=== PATIENT | female | born 1935 | race Caucasian/White ===

== ENCOUNTER → 2016-09-07 | Outpatient (CLI) | payer MEDICARE, BC ==
[~2016-09-07] MED LIST: ALPRAZOLAM PO; AMLODIPINE BESYL5 MG PO; BENADRYL25 MG PO; BYSTOLIC5 MG PO; CALAN SR PO; CALCIUM ZINC MAG PO; CELEXA PO; CITALOPRAM HBR40 MG PO; GLUCOSAMIN-CHO1 EACH PO; IBUPROFEN PO; IBUPROFEN800 MG PO; LEVOTHYROXINE75 MCG PO; OMNICEF300 MG PO; POTASSIUM PO; PRAVACHOL PO; PROBIOTIC1 EAC1 PO; SYNTHROID PO; TENORMIN50 MG PO; TYLENOL ARTHRITIS; VERAPAMIL ER180 MG PO; WOMEN'S 50+ DA1 EACH PO; XANAX0.5 M1 PO; [UNRECOGNIZED DRUG - REMARK]
--- NOTE | ~2016-09-07 | CR63 ---
[facility] A Service of [facility] & [facility] RADIOLOGY TEXT RESULTS PATIENT: EMILIANA CABRERA LOCATION: [facility] : 35 UNIT #: [id number] AGE: [address]: Jose Antonio Raymundo MD SEX: F ORDER DR: [id number] [facility] [address] [place], [place] [address] [id number] O MR#: [id number] Acc #: [id number] NAME: EMILIANA CABRERA : 1935 SEX: F STUDY DATE/TIME: 09/07/2016 9:51 UNIT: [facility] ROOM: STUDY DESCRIPTION: CR Chest 2 View Attending Physician: Jose Antonio Raymundo M.D. Referring Physician: Jose Antonio Raymundo M.D. Ordering Physician: Jose Antonio Raymundo M.D. Primary Care Physician: Cristi Ross Jr., M.D. MEDICAL IMAGING REPORT This report is preliminary unless electronic signature is present EXAM Chest PA and lateral 09/07/2016 HISTORY Osteoarthritis left knee preop left total knee replacement, shortness of breath today. Benign essential hypertension. FINDINGS The heart is normal in size. The lungs are clear. There are no pleural effusions. Moderate-sized hiatal hernia is again noted. IMPRESSION Hiatal hernia. No active pulmonary disease. Dictated by... Danny Mosquera M.D. THIS IS AN ELECTRONICALLY VERIFIED REPORT Danny Mosquera M.D. at 09/08/2016 8:11 AM CASIMIRO/shaan TD: 09/07/2016 12:50 JOB #: [id number] MEDICAL IMAGING REPORT Page 1 of 1 COPY
--- NOTE | ~2016-09-07 | EKG ---
PATIENT: EMILIANA CABRERA UNIT #: [id number] Ventricular Rate: 45 BPM Atrial Rate: 45 BPM P-R Interval: 126 ms QRS Duration: 72 ms Q-T Interval: 460 ms QTC Calculation(Bezet): 397 ms P [place]: 27 degrees Calculated R [place]: 15 degrees Calculated T [place]: 37 degrees Diagnosis Line: Marked sinus bradycardia Diagnosis Line: Otherwise normal ECG Diagnosis Line: When compared with ECG of 27-AUG-2014 10:57, Diagnosis Line: No significant change was found Diagnosis Line: Reconfirmed by DAYNA AGUSTIN MD ([id number]) on Diagnosis Line: 09/09/2016 2:14:56 PM INTERPRETING MD: VAMSI SLAUGHTER
--- NOTE | ~2016-09-07 | US84 ---
[id number] [facility] [address] [place], [place] [address] [id number] O MR#: [id number] Acc #: [id number] NAME: EMILIANA CABRERA : 1935 SEX: F STUDY DATE/TIME: 09/07/2016 12:50 UNIT: [facility] ROOM: STUDY DESCRIPTION: US LE Veins Complete Ken Stdy Attending Physician: Jose Antonio Raymundo M.D. Referring Physician: Jose Antonio Raymundo M.D. Ordering Physician: Jose Antonio Raymundo M.D. Primary Care Physician: Cristi Ross Jr., M.D. MEDICAL IMAGING REPORT This report is preliminary unless electronic signature is present EXAM Bilateral leg vein Doppler, 09/07/2016. HISTORY Preoperative exam. Prior history of pulmonary embolism. Cramps in the lower extremities for several years. TECHNIQUE Venous ultrasound examination of both lower extremities was performed using grayscale, spectral Doppler and color flow Doppler imaging. FINDINGS The examination is negative. There is no evidence of deep venous thrombus from the groin to the lower calf bilaterally. Visualized greater saphenous veins are also patent. IMPRESSION Negative examination. No evidence of lower extremity deep venous thrombosis. Dictated by... Sb Luong Jr., M.D. THIS IS AN ELECTRONICALLY VERIFIED REPORT Sb Luong Jr., M.D. at 09/08/2016 7:35 AM Charbel TD: 09/07/2016 13:45 JOB #: [id number] MEDICAL IMAGING REPORT Page 1 of 1 COPY
--- NOTE | ~2016-09-07 | CO ---
Unit #: [id number] #: [id number] Patient: EMILIANA CABRERA [id number] [address] [place], [place] [address] [id number] O MR#: [id number] NAME: EMILIANA CABRERA ROOM: Age: 81 Sex: F Admission Date: 09/07/2016 : 1935 Attending Physician: Jose Antonio Raymundo M.D. Primary Care Physician: Cristi Ross Jr., M.D. Consultation Date: 09/07/2016 CONSULTATION REPORT PREOP CONSULTATION NOTE REASON FOR CONSULTATION Preop evaluation. HISTORY OF PRESENT ILLNESS The patient is an 81-year-old female, who presents for evaluation prior to left total knee. She states that she is in her usual state of health today and suffers from left knee pain. She states that it is worse with exertion, better with ibuprofen that is prescribed. She does not appear to take any narcotic therapy. Regarding chronic illnesses, she has a well-controlled hypothyroidism, well-controlled hypertension, and well-controlled anxiety. PAST MEDICAL HISTORY Hypothyroidism. Allergic rhinitis. History of diverticulitis, knee bursitis, mitral valve disease, hypertension, chronic back pain. Hiatal hernia and coronary artery disease. PAST SURGICAL HISTORY Right total knee. FAMILY HISTORY Notable for longevity with a mother who is still living at 101. SOCIAL HISTORY The patient denies tobacco, alcohol and illicit drug use. ALLERGIES Doxycycline. REVIEW OF SYSTEMS 10-point review of systems obtained. Negative, except as per HPI with the addition of dyspnea on exertion. PHYSICAL EXAMINATION VITAL SIGNS: Blood pressure 151/74, heart rate 109, temperature 97.2. GENERAL: 81-year-old female who appears younger than stated age, in no acute distress. HEENT: Pupils equally round. Extraocular movements intact. Mucous membranes dry. NECK: Supple. No JVD. No lymphadenopathy. CARDIAC: Regular rate and rhythm. No murmurs, gallops, or rubs. Unit #: [id number] #: [id number] Patient: EMILIANA CABRERA LUNGS: Clear to auscultation bilaterally. ABDOMEN: Nontender, nondistended, positive bowel sounds. EXTREMITIES: No clubbing, cyanosis, or edema. They are warm and dry. PSYCHIATRIC: Alert and oriented x3. Affect is appropriate. NEUROLOGICAL: Cranial nerves II through XII intact grossly. The patient moves all extremities equally on purpose. SKIN: No rash, bruises, or ulcers. MUSCULOSKELETAL: Left knee, pain and swelling; otherwise, no muscle or joint pain. No muscle or joint swelling. DIAGNOSTIC STUDIES LABORATORIES: BMP is essentially normal. She does have a sodium to be slightly low at 133. CBC is normal. Coagulation studies are normal. UA shows 1+ leukocyte esterase and 5-10 white cells, 4+ bacteria, occasional squamous cells noted. Urine culture has been started. ASSESSMENT AND PLAN 1. Preop evaluation based on history and physical, I feel that this patient would be best suited by preop stress testing. She did undergo heart cath in August of 2014, and was noted to have a normal left main, normal left anterior descending normal co-dominate circumflex, but also radius intermedius branch that showed an ostial 75% to 80% stenosis, and codominant right coronary artery showing borderline significant distal stenosis. The patient states that she does have shortness of breath when she gets in a hurry, and has previously attributed this to her hiatal hernia impeding her lung function; however, given that she has opted to discontinue her beta-christopher, given side effects of fatigue and a heart rate of 109 today, I feel a preoperative stress test would allow for better risk stratification. I have discussed this with the patient who understands and agrees. 2. Left knee osteoarthritis. Potential left total knee after further cardiac workup. 3. Hypertension. Continue home amlodipine. 4. Anxiety. The patient should continue Celexa and Xanax. 5. Hypothyroidism. Patient is to continue her levothyroxine. 6. Prophylaxis: DVT prophylaxis in the perioperative period will be determined by the orthopedic service. 1. Dictated by... Rodri Vanegas M.D. BELEN/mohan TD: 09/07/2016 20:04 JOB #: [id number] CONSULTATION REPORT Page 1 of 1 X Rodri Vanegas MD X CONSULTATION REPORT
--- NOTE | ~2016-09-07 | EKG ---
PATIENT: EMILIANA CABRERA UNIT #: [id number] Ventricular Rate: 45 BPM Atrial Rate: 45 BPM P-R Interval: 126 ms QRS Duration: 72 ms Q-T Interval: 460 ms QTC Calculation(Bezet): 397 ms P [place]: 27 degrees Calculated R [place]: 15 degrees Calculated T [place]: 37 degrees Diagnosis Line: Marked sinus bradycardia Diagnosis Line: Abnormal ECG Diagnosis Line: When compared with ECG of 27-AUG-2014 10:57, Diagnosis Line: No significant change was found Diagnosis Line: Confirmed by DAYNA AGUSTIN MD ([id number]) on 09/09/2016 Diagnosis Line: 2:14:39 PM INTERPRETING MD: VAMSI SLAUGHTER
[2016-09-07 08:32] LABS: HEMATOCRIT 40.4 % (35.0-45.0); HEMOGLOBIN 13.1 gm/dL (12.0-16.0); MEAN CELL VOLUME 86.7 FL (83-96); MEAN CORPUSCULAR HGB CONC 32.3 g/dL (30-36); MEAN PLATELET VOLUME 7.7 FL (6.5-11.5); RED BLOOD COUNT 4.66 X10e (3.90-5.30); RED CELL DISTRIBUTION WIDTH 12.9 % (11.0-15.5); WHITE BLOOD COUNT 7.4 X10e3 (4.0-10.5)
[2016-09-07 08:45] LABS: PROTHROMBIN TIME (PATIENT) 10.3 SECONDS (9.6-11.5)
[2016-09-07 09:14] LABS: ALBUMIN SERUM 4.1 g/dL (3.5-5.0); BILIRUBIN,TOTAL 0.5 mg/dL (0.2-2.0); CALCIUM SERUM 9.1 mg/dL (8.4-10.2); GLOM FILT RATE Estimated 52.8 mL/min (>60); POTASSIUM 4.3 mmol/L (3.5-5.1); PROTEIN TOTAL SERUM 6.9 g/dL (6.0-8.3)
[2016-09-07 09:17] LABS: URINE APPEARANCE CLEAR; URINE BILIRUBIN NEG (NEG); URINE BLOOD NEG (NEG); URINE COLOR YELLOW; URINE GLUCOSE NEG (NEG); URINE KETONE NEG (NEG); URINE LEUKOCYTE ESTERASE 1+ (NEG); URINE NITRATE NEG (NEG); URINE PH 6.5 (5-8); URINE PROTEIN NEG (NEG); URINE SPECIFIC GRAVITY 1.013 (1.003-1.035); URINE UROBILINOGEN 0.2 MG/DL (NEG)
[2016-09-07 09:19] LABS: CULTURE INDICATED? YES; URBCS1 AUWI 0-2 /[HPF] (0-2); URINE BACTERIA AUWI 4+ (NEGATIVE); URINE SQUAMOUS EPITHELIAL CELL OCC /[HPF]
[2016-09-07 09:20] LABS: URINE SOURCE CLEAN CATCH
== END | disposition home or self-care (01) ==
LOC: CAMB 07:10
PROVIDERS: Orthopaedic Surgery
DX: Z01.818 Encounter for other preprocedural examination (principal); M17.12 Unilateral primary osteoarthritis, left knee; M79.89 Other specified soft tissue disorders; I10 Essential (primary) hypertension; K44.9 Diaphragmatic hernia without obstruction or gangrene
CPT/HCPCS: 36415; 71020; 80053; 81003; 85027; 85610; 86850; 86900; 86901; 87070; 87086; 87088; 87186; 93005; 93970

== ENCOUNTER → 2016-11-30 | Outpatient (CLI) | payer MEDICARE, BC ==
--- NOTE | ~2016-11-30 | CO ---
Unit #: [id number] #: [id number] Patient: EMILIANA CABRERA [id number] [address] [place], [place] [address] [id number] O MR#: [id number] NAME: EMILIANA CABRERA ROOM: Age: 81 Sex: F Admission Date: 11/30/2016 : 1935 Attending Physician: Jose Antonio Raymundo M.D. Primary Care Physician: Cristi Ross Jr., M.D. Consultation Date: 11/30/2016 CONSULTATION REPORT REASON FOR CONSULTATION Followup preop medical evaluation prior to left total knee arthroplasty. The patient's surgery was rescheduled from original surgery date due to patient's low back pain and need for epidural injections. HISTORY OF PRESENT ILLNESS The patient is an 81-year-old female, who presents to preprocedural screening for the reasons indicated above. She was evaluated on 09/07/[address] Vanegas of our group, who recommended preoperative cardiac clearance. The patient states that her surgery was canceled not because of the need for preop cardiac clearance, but because of problems with her low back and the need for epidural injections. She was however recently evaluated by Dr. Cristi Whitaker, underwent cardiac stress test and the patient's medical record includes a letter of preoperative cardiac clearance for elective surgery stating that she is at acceptable cardiac risk for the planned elective surgery and signed by Dr. Cristi Whitaker. The patient has also received preop dental clearance. She denies upper chest, back, arm, neck, jaw pain or pressure. Denies the ability to tolerate CPAP for a known diagnosis of sleep apnea. She denies history of myocardial infarction, congestive heart failure, CVA, TIA, and diabetes. Her renal function is within normal range today. Her surgery has been rescheduled for 12/12/[address] Ramyundo. PAST MEDICAL HISTORY There have been no changes since the original dictation by Dr. Vanegas on 09/07/2016. PAST SURGICAL HISTORY Only the addition of epidural injections without other changes since previous report. ALLERGIES Doxycycline and shell fish, both cause hives and swelling; adverse reaction to isosorbide, headaches; and codeine, nausea and vomiting/abdominal pain. CURRENT MEDICATIONS 1. Levothyroxine sodium 75 mcg p.o. daily. 2. Xanax 0.25 mg p.o. b.i.d. p.r.n. anxiety. 3. Ibuprofen 800 mg p.o. b.i.d. p.r.n. pain. 4. Amlodipine besylate 5 mg p.o. daily. 5. Celexa 40 mg p.o. daily. SOCIAL HISTORY Unit #: [id number] #: [id number] Patient: EMILIANA CABERRA Unchanged from 09/07/2016 preop evaluation. FAMILY HISTORY Unchanged from 09/07/2016 preop evaluation. REVIEW OF SYSTEMS A 10-point review of systems is conducted and otherwise negative except as indicated under history of present illness above. PHYSICAL EXAMINATION GENERAL: An 81-year-old female, awake and alert, in no acute distress. VITAL SIGNS: Temperature 97.4 orally, heart rate 66, respiratory rate 16, and blood pressure 114/64. HEENT: Atraumatic and normocephalic. Sclerae anicteric. No discharge from eyes, ears, or nares. LYMPHATICS: No preauricular, postauricular, tonsillar, submental, anterior-posterior cervical, supra or infraclavicular adenopathy. ENDOCRINE: No thyromegaly, thyroid nodules, or tenderness. RESPIRATORY: Clear to auscultation in all rashid bilaterally without wheezes, rhonchi, or rales. CARDIOVASCULAR: S1 and S2. Regular rate and rhythm without murmur or rub. No carotid bruits. GI: Bowel sounds are positive x4. Soft, nontender, and nondistended. EXTREMITIES: No edema, cyanosis, or clubbing. MUSCULOSKELETAL: Strength 5/5 in all extremities bilaterally to flexion and extension. No tenderness or obvious muscle atrophy. NEUROLOGIC: Alert and oriented x3. Speech clear. Cranial nerves 2 through 12 are grossly intact. Follows directions for examination. DIAGNOSTIC STUDIES LABORATORY RESULTS: WBC 7.3, hemoglobin 12.6, hematocrit 38.2, and platelets 355,000. Sodium 135, potassium 4.0, chloride 101, CO2 of 25, glucose 88, BUN 17, creatinine 0.6, and calcium 8.9. AST 23, ALT 17, alkaline phosphatase 100, bilirubin total 0.5, total protein 6.6, and albumin 3.8. Urinalysis negative with neither microscopic nor culture indicated. PT 10.8, INR 1.0. Blood type B positive. IMAGING STUDIES: Two-view chest x-ray report, date of study 09/07/2016, impression; hiatal hernia. No active pulmonary disease. Bilateral lower extremity duplex venous Dopplers on 09/07/2016, negative examination. No evidence of lower extremity DVT. CARDIOVASCULAR STUDIES: A 12-lead EKG, marked sinus bradycardia, otherwise normal ECG. When compared to ECG 08/27/2014, no significant change was found, confirmed by Noel Arana M.D. IMPRESSION The patient is an 81-year-old female, who presents to preprocedural screening for; 1. Preoperative medical evaluation prior to left total knee arthroplasty. The patient's Zelaya revised cardiac risk index is equal to 0.4%. Based on information known today, this represents the patient's perioperative risk for fatal or nonfatal myocardial infarction, cardiopulmonary arrest, arrhythmia, and/or pulmonary edema. The patient has received preoperative Cardiology clearance from Dr. Cristi Whitaker, her dry press operator helper. We will request copies of the stress test and 2D echocardiogram from his office on [facility] for review. This has all been discussed in detail with the Unit #: [id number] #: [id number] Patient: EMILIANA CABRERA patient. She wishes to proceed with surgery as scheduled at this time. 2. Hypothyroidism. Continue home dose of levothyroxine. Check TSH and free T4 today. 3. Hypertension. Blood pressure is stable. Continue current dose of Norvasc and adjust medications postoperatively based on blood pressure range. 4. Anxiety, stable. We will hold p.r.n. dose of Xanax for TIM protocol. 5. Allergic rhinitis, stable. 6. History of diverticulitis. 7. Chronic low back pain, status post recent epidurals. 8. History of hiatal hernia. 9. History of pulmonary embolism after previous total knee arthroplasty. Perioperative anticoagulation orders will be per Dr. Raymundo. 10. Obstructive sleep apnea. The patient refuses need for treatment based on inability to tolerate CPAP. We will place the patient on TIM protocol postoperatively. 11. History of arrhythmia. The patient's EKG is stable at this time. She has received cardiac clearance. 12. History of urinary stress incontinence and urinary tract infection. Urine is negative for infection today. 13. History of leg cramps likely history of venous dependent edema/bilateral lower extremity venous insufficiency. 14. Possible history of methicillin-resistant Staphylococcus aureus. MRSA nasal swab report from 08/2016 was negative. MRSA nasal swab report for today is pending at this time. Thank you for allowing us to participate in the care of this patient. We will gladly follow her for postop medical management, pending order of Dr. Raymundo. Dictated by... Sree SouzaPBeverlyRScott. for Earlene Medina M.D. TOMAS/ana TD: 12/01/2016 07:55 JOB #: [id number] CONSULTATION REPORT Page 1 of 1 X Shell Perez STRIP MINE SUPERVISOR X CONSULTATION REPORT
[2016-11-30 11:17] LABS: HEMATOCRIT 38.2 % (35.0-45.0); HEMOGLOBIN 12.6 gm/dL (12.0-16.0); MEAN CELL VOLUME 86.3 FL (83-96); MEAN CORPUSCULAR HEMOGLOBIN 28.5 PG (28-34); MEAN CORPUSCULAR HGB CONC 33.1 g/dL (30-36); MEAN PLATELET VOLUME 7.1 FL (6.5-11.5); RED BLOOD COUNT 4.42 X10e (3.90-5.30); WHITE BLOOD COUNT 7.3 X10e3 (4.0-10.5)
[2016-11-30 11:35] LABS: PROTHROMBIN TIME (PATIENT) 10.8 SECONDS (10.0-11.7)
[2016-11-30 11:51] LABS: ALBUMIN SERUM 3.8 g/dL (3.5-5.0); BILIRUBIN,TOTAL 0.5 mg/dL (0.2-2.0); BUN/CREATININE RATIO 28.33; CALCIUM SERUM 8.9 mg/dL (8.4-10.2); CREATININE SERUM 0.6 mg/dL (0.6-1.4); GLOM FILT RATE Estimated 85.5 mL/min (>60); PROTEIN TOTAL SERUM 6.6 g/dL (6.0-8.3)
[2016-11-30 11:56] LABS: URINE APPEARANCE SL HAZY; URINE BILIRUBIN NEG (NEG); URINE BLOOD NEG (NEG); URINE COLOR YELLOW; URINE GLUCOSE NORM (NORM); URINE KETONE NEG (NEG); URINE LEUKOCYTE ESTERASE NEG (NEG); URINE NITRATE NEG (NEG); URINE PROTEIN NEG (NEG); URINE UROBILINOGEN NORM (NORM)
[2016-11-30 11:57] LABS: CULTURE INDICATED? NO; URINE SOURCE CLEAN CATCH
[2016-11-30 17:49] LABS: THYROID STIMULATING HORMONE 0.58 uIU/ml (0.34-5.60)
[2016-11-30 17:56] LABS: FREE THYROXIN (T4) 0.85 ng/dL (0.58-1.64)
== END | disposition home or self-care (01) ==
LOC: CAMB 09:11
PROVIDERS: Orthopaedic Surgery
DX: Z01.812 Encounter for preprocedural laboratory examination (principal); M17.12 Unilateral primary osteoarthritis, left knee; I10 Essential (primary) hypertension; Z86.718 Personal history of other venous thrombosis and embolism; Z87.01 Personal history of pneumonia (recurrent)
CPT/HCPCS: 36415; 80053; 81003; 84439; 84443; 85027; 85610; 86850; 86900; 86901; 87070

== ENCOUNTER 2016-12-12 05:50 | Inpatient (IN) | payer MEDICARE, BC ==
--- NOTE | ~2016-12-12 | OR ---
Unit #: [id number] #: [id number] Patient: EMILIANA CABRERA [id number] [address] [place], [place] [address] [id number] I MR#: [id number] NAME: EMILIANA CABRERA. ROOM: 450 Date of Procedure: 12/11/2016 Admission Date: 12/12/2016 Surgeon: Jose Antonio Raymundo M.D. : 1935 Attending Physician: Jose Antonio Raymundo M.D. Primary Care Physician: Cristi Ross Jr., M.D. OPERATIVE REPORT PREOPERATIVE DIAGNOSIS Primary localized osteoarthritis of the left knee. POSTOPERATIVE DIAGNOSIS Primary localized osteoarthritis of the left knee. PROCEDURE PERFORMED Left total knee. ASSISTANTS Steve and Jia. ANESTHESIA Adductor canal block plus general. ESTIMATED BLOOD LOSS 100 mL. INDICATIONS FOR SURGERY This is an 81-year-old lady with severe pain in her left knee. She has had pain for months, it has been getting progressively worse. The pain limits her walking or standing. X-rays show she has [id number]-[id number]-wdve with subchondral sclerosis and periarticular osteophytes. Injections and anti-inflammatories have not helped. DESCRIPTION OF PROCEDURE She was brought to the operating room, given 1 g of Ancef. This will be continued postop, but discontinued within 23 hours from the start time of surgery. She was then given an adductor canal block, brought back to the operating room, and given general anesthetic. Tourniquet placed around the left thigh. The left leg was prepped and draped in a sterile fashion. Tourniquet was inflated to 250. A straight anterior skin incision was made. The subcutaneous dissected away and a medial arthrotomy performed. Patella was slid to the side. Osteophytes removed from the femur. The intramedullary guide was used and a 6-degree valgus cut was made on the distal femur. The femur was sized and found to be a size 3. The anterior-posterior cutting block was applied. Rotation was checked in the knee. Anterior and posterior cuts were made along with the chamfer cuts. Proximal tibial cut was made using a 0-degree cutting block. The remaining meniscal fragments debrided. The posterior condylar osteophytes were removed and then the posterior capsule and periosteum were injected with ropivacaine mixture. A trial femur was applied and then drill holes Unit #: [id number] #: [id number] Patient: EMILIANA CABRERA were made for lugs on the femoral component. Trial tibia was applied and with an 8 mm insert, the knee was found to be stable. This was a 2.5 tibia. The patella was grasped with 2 towel clips, measured 20 mm thick, cut smooth at 13 and a 35 patella was the appropriate size. The 3 drill holes were made. Trial patella applied and it tracked properly. We then removed all the trials. We used the drill and punch on the tibial tray. The knee was irrigated and dried while the cement was mixed. Then, all 3 components were cemented simultaneously. Once again, it was a size 3 femur cruciate retaining, size 2.5 tibia, all poly 8 mm thick, and a 35 patella from the [employer] P[employer] Sigma knee system. Any excess cement was removed and after the cement was hardened, the tourniquet was released. Hemostasis obtained. Wound irrigated out with a dilute Betadine solution and then bacitracin and then closed using 0 Ethibond in the arthrotomy, 0 and 2-0 Vicryl in the subcutaneous, and the skin was closed with Prineo closure. outpatient physical therapist assistant, Telly Wilson, was present throughout the entire case. Dictated by... Dorothy Pearce/ana TD: 12/12/2016 23:42 JOB #: [id number] OPERATIVE REPORT Page 1 of 1 X Jose Antonio Raymundo MD PROCEDURE OPERATIVE NOTE
--- NOTE | ~2016-12-12 | DS ---
Unit #: [id number] #: [id number] Patient: EMILIANA CABRERA [id number] [facility] [address]. [place], [place] [address] [id number] I MR#: [id number] NAME: EMILIANA CABRERA. ROOM: 450 Age: 81 Sex: F Admission Date: 12/12/2016 : 1935 Discharge Date: 12/13/2016 Attending Physician: Jose Antonio Raymundo M.D. Primary Care Physician: Cristi Ross Jr., M.D. DISCHARGE SUMMARY ADMITTING PHYSICIAN Dr. Jose Antonio Raymundo. REASON FOR ADMISSION Severe osteoarthritis, left knee. PROCEDURE Left total knee arthroplasty. HOSPITAL COURSE The patient was admitted to [facility] with a history of severe osteoarthritis of the left knee. The patient had undergone the above procedure. The patient tolerated the procedure well and no apparent complications. The patient's vital signs are stable. Temperature is 98.2, blood pressure 106/48. Heart rate was 65 and regular, respirations 18. Her incision is healing well and neurovascular exam is intact. She had 2+ pulses in the lower extremity. The plan will be to send her to [facility] later today. DISPOSITION [facility]. MEDICATIONS Per medication reconciliation. She will be on her regular home medications. She will get 6 mg of Coumadin today and an injection of Lovenox and PT and INR will be drawn tomorrow. Also, the addition of hydrocodone with pain control. LABORATORY PT 17.4, INR 1.6, hemoglobin 10.7. FOLLOWUP INSTRUCTIONS 1. The patient will need PT and INR on 12/14, 12/15, 12/16 and then every Monday and thereafter. Call the results to [phone]. 2. The patient should wear JOANNE hose during the day and off at night. 3. The patient should not drive until seen by Dr. Raymundo on 01/24/2017. 4. The patient will begin physical therapy including active, active assist and range of motion, strengthening, progressive ambulation, begin with a walker and progress to a cane as tolerated. Unit #: [id number] #: [id number] Patient: EMILIANA CABRERA Dictated by... Brianna Walter-C- cecelia Raymundo M.D. KF/bd TD: 12/13/2016 08:21 JOB #: [id number] DISCHARGE SUMMARY Page 1 of 1 X X DISCHARGE SUMMARY
[2016-12-12 06:55] LABS: PROTHROMBIN TIME (PATIENT) 11.2 SECONDS (10.0-11.7)
[2016-12-13 03:01] LABS: HEMATOCRIT 32.4 % (35.0-45.0); HEMOGLOBIN 10.7 gm/dL (12.0-16.0)
[2016-12-13 03:20] LABS: CALCIUM SERUM 8.7 mg/dL (8.4-10.2); CREATININE SERUM 0.6 mg/dL (0.6-1.4); GLOM FILT RATE Estimated 85.5 mL/min (>60); POTASSIUM 4.1 mmol/L (3.5-5.1)
[2016-12-13 03:24] LABS: INR 1.6
[2016-12-13 03:30] LABS: PROTHROMBIN TIME (PATIENT) 17.4 SECONDS (10.0-11.7)
== END 2016-12-13 14:34 | DRG 470 ==
LOC: CSUR 05:50 → CPACUOF 07:00 → CSUR 08:00 → CPACUOF 08:57 → CSUR 08:57 → CPACUOF 10:45 → C4B 10:45
PROVIDERS: Nurse Practitioner; Orthopaedic Surgery
PROC: 0SRD0J9 Replacement of Left Knee Joint with Synthetic Substitute, Cemented, Open Approach (ICD-10-PCS; principal; 2016-12-11)
DX: M17.12 Unilateral primary osteoarthritis, left knee (principal); J44.9 Chronic obstructive pulmonary disease, unspecified; K21.9 Gastro-esophageal reflux disease without esophagitis; Z88.1 Allergy status to other antibiotic agents; Z88.5 Allergy status to narcotic agent; Z91.013 Allergy to seafood; E03.9 Hypothyroidism, unspecified; K44.9 Diaphragmatic hernia without obstruction or gangrene; I10 Essential (primary) hypertension; Z82.49 Family history of ischemic heart disease and other diseases of the circulatory system; Z98.49 Cataract extraction status, unspecified eye; Z90.49 Acquired absence of other specified parts of digestive tract
CPT/HCPCS: 80048; 84443; 85014; 85018; 85610; 97110; 97116; 97161; C1713; C1776; G8978-GP; G8979-GP; G8980-GP; J0131; J0171; J0690; J0735; J1100; J1170; J1650; J1885; J2175; J2250; J2405; J2765; J2795; J3010